=== PATIENT | female | born 1990 | race Asian ===

== ENCOUNTER 2018-12-07 21:58 | Emergency (ER) | payer BC ==
[~2018-12-07] VITALS: Ht 154.9 cm; Wt 80.3 kg
[2018-12-07] MEDS ORDERED: NKM (22:18)
[2018-12-07 22:25] VITALS: BP 143/92
--- NOTE | 2018-12-07 22:35 | NUR ---
ED Nurse Note: Pt arrived ED from home, c/o middle chest pain 04/21 today. Pt is A/O X 4. Vital signs stable at this time, waiting for orders.
--- NOTE | 2018-12-07 22:46 | Emergency Room Report ---
History of Present Illness General Chief Complaint: Chest Pain Source: Patient Present Illness HPI 28-year-old female presented after increased pleuritic chest pain. Patient reports having increased pain for 1 day. She reports of increased nonproductive cough. Patient had a positive test and had been noted to have some continued vaginal bleeding and falling quantitative beta-hCG. Patient denies any recent trauma. She reports having continued intermittent chest discomfort.Patient prior history of possible miscarriage. Patient had prior history of Rh-. She reports having multiple sick contacts at home who have a viral type illnesses. Patient reports having some moderate headache. She reports having intermittent frequent headaches. She had a recent ultrasound which showed no evidence of intrauterine . Allergies: Coded Allergies: Dairy (Verified Allergy, Unknown, 12/07/18) MILK (Verified Allergy, Unknown, 12/07/18) Patient History Past Medical History: see triage record Last Menstrual Period: still on Now: No - unsure : 5 Para: 2 Reviewed Nursing Documentation: PMH: Agreed; PSxH: Agreed Nursing Documentation-PMH Past Medical History: No Stated History Review of Systems All Other Systems: negative except mentioned in HPI Physical Exam Vital Signs Date Time Temp Pulse Resp B/P (MAP) Pulse Ox O2 Delivery O2 Flow Rate FiO2 12/07/18 22:10 98.2 88 16 142/93 99 Room Air Sp02 EP Interpretation: reviewed, normal General Appearance: normal inspection, well appearing, no apparent distress, alert, GCS 15 Head: atraumatic ENT: normal ENT inspection, hearing grossly normal, normal voice Neck: normal inspection, full range of motion, supple, no bony tend Respiratory: normal inspection, lungs clear, normal breath sounds, no respiratory distress, no retraction, no wheezing Cardiovascular #1: regular rate, rhythm, no edema Gastrointestinal: normal inspection, normal bowel sounds, non tender, soft, no guarding, no hernia Genitourinary: no CVA tenderness Musculoskeletal: normal inspection, back normal, normal range of motion Neurologic: normal inspection, alert, oriented x3, responsive, 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 Differential diagnosis include was not limited to ectopic , ruptured ovarian cyst, incomplete , pulmonary embolism, myocardial infarction, pneumonia among others. Because of complexity of patient's case laboratory testing and imaging studies were ordered. CT imaging of the chest showed no evidence of pulmonary embolism. A studies were notable for negative test. Pelvic ultrasound showed no evidence of retained products. Patient was given prescription for medications for pain. Advised to recheck with primary care physician. Patient does not appear to have any evidence of acute bacterial infection and patient appears to be stable for outpatient follow-up. Labs Test 12/07/18 23:40 White Blood Count 10.0 K/UL (4.8-10.8) Red Blood Count 4.46 M/UL (4.20-5.40) Hemoglobin 11.8 G/DL (12.0-16.0) Hematocrit 36.1 % (37.0-47.0) Mean Corpuscular Volume 81 FL (80-99) Mean Corpuscular Hemoglobin 26.5 PG (27.0-31.0) Mean Corpuscular Hemoglobin Concent 32.7 G/DL (32.0-36.0) Red Cell Distribution Width 12.1 % (11.6-14.8) Platelet Count 196 K/UL (150-450) Mean Platelet Volume 9.4 FL (6.5-10.1) Neutrophils (%) (Auto) 60.8 % (45.0-75.0) Lymphocytes (%) (Auto) 26.8 % (20.0-45.0) Monocytes (%) (Auto) 5.8 % (1.0-10.0) Eosinophils (%) (Auto) 5.1 % (0.0-3.0) Basophils (%) (Auto) 1.5 % (0.0-2.0) D-Dimer 0.36 mg/L FEU (0.00-0.49) Sodium Level 140 MMOL/L (136-145) Potassium Level 4.3 MMOL/L (3.5-5.1) Chloride Level 106 MMOL/L (98-107) Carbon Dioxide Level 28 MMOL/L (21-32) Anion Gap 7 mmol/L (5-15) Blood Urea Nitrogen 10 mg/dL (7-18) Creatinine 0.7 MG/DL (0.55-1.30) Estimat Glomerular Filtration Rate > 60 mL/min (>60) Glucose Level 90 MG/DL (74-106) Calcium Level 8.5 MG/DL (8.5-10.1) Total Bilirubin 0.5 MG/DL (0.2-1.0) Aspartate Amino Transf (AST/SGOT) 21 U/L (15-37) Alanine Aminotransferase (ALT/SGPT) 13 U/L (12-78) Alkaline Phosphatase 64 U/L (46-116) Troponin I 0.000 ng/mL (0.000-0.056) Total Protein 6.7 G/DL (6.4-8.2) Albumin 3.2 G/DL (3.4-5.0) Globulin 3.5 g/dL Albumin/Globulin Ratio 0.9 (1.0-2.7) Thyroid Stimulating Hormone (TSH) 1.005 uiU/mL (0.358-3.740) Human Chorionic Gonadotropin, Quant < 1 mIU/mL (1-6) EKG Diagnostic Results Rate: normal Rhythm: NSR ST Segments: no acute changes Last Vital Signs Date Time Temp Pulse Resp B/P (MAP) Pulse Ox O2 Delivery O2 Flow Rate FiO2 12/07/18 22:10 98.2 88 16 142/93 99 Room Air Status: improved Disposition: HOME, SELF-CARE Condition: Stable Scripts Guaifenesin* (ADULT WAL-TUSSIN*) 100 Mg/5 Ml Liquid 5 ML ORAL Q4H, #120 ML Prov: Eze Gómez MD 12/08/18 Ibuprofen* (MOTRIN*) 600 Mg Tablet 600 MG ORAL Q8H PRN for For Pain, #30 TAB 0 Refills Prov: Eze Gómez MD 12/08/18 Eze Gómez MD Dec 07, 2018 22:46
--- NOTE | 2018-12-07 23:15 | NUR ---
ED Nurse Note: Blood and urine collected and sent to Lab.
--- NOTE | 2018-12-07 23:55 | NUR ---
ED Nurse Note: Pt was sent to [facility]
--- NOTE | 2018-12-08 00:20 | NUR ---
ED Nurse Note: Pt returned from [facility]
[2018-12-08 00:30] LABS: BASOPHILS % (AUTO) 1.5 % (0.0-2.0); EOSINOPHILS % (AUTO) 5.1 % (0.0-3.0); HEMATOCRIT 36.1 % (37.0-47.0); HEMOGLOBIN 11.8 G/DL (12.0-16.0); LYMPHOCYTES % (AUTO) 26.8 % (20.0-45.0); MEAN CORPUSCULAR VOLUME 81 FL (80-99); MONOCYTES % (AUTO) 5.8 % (1.0-10.0); NEUTROPHILS % (AUTO) 60.8 % (45.0-75.0); PLATELET COUNT 196 K/UL (150-450); RED BLOOD COUNT 4.46 M/UL (4.20-5.40); RED CELL DISTRIBUTION WIDTH 12.1 % (11.6-14.8)
[2018-12-08 00:34] LABS: ALANINE AMINOTRANSFERASE 13 U/L (12-78); ALBUMIN 3.2 G/DL (3.4-5.0); ALBUMIN/GLOBULIN RATIO 0.9 (1.0-2.7); ALKALINE PHOSPHATASE 64 U/L (46-116); ANION GAP 7 mmol/L (5-15); ASPARTATE AMINO TRANSFERASE 21 U/L (15-37); BILIRUBIN,TOTAL 0.5 MG/DL (0.2-1.0); BLOOD UREA NITROGEN 10 mg/dL (7-18); CALCIUM 8.5 MG/DL (8.5-10.1); CARBON DIOXIDE 28 MMOL/L (21-32); CHLORIDE 106 MMOL/L (98-107); CREATININE 0.7 MG/DL (0.55-1.30); POTASSIUM 4.3 MMOL/L (3.5-5.1); SODIUM 140 MMOL/L (136-145)
[2018-12-08] MEDS ORDERED: Albuterol/Ipratropium 3ml neb HHN ONE (01:45)
[2018-12-08] MEDS ORDERED: Isovue-370 150ml vial INJ PRN (02:00)
--- NOTE | 2018-12-08 02:25 | NUR ---
ED Nurse Note: Dr. Gómez ordered CT, new IV was inserted at left AC, 20G. X-ray done at bed side.
--- NOTE | 2018-12-08 03:03 | NUR ---
ED Nurse Note: Pt was sent down for CT.
[2018-12-08] MEDS ORDERED: IBUPROFEN600 MG ORAL (04:47)
[2018-12-08] MEDS ORDERED: ADULT WAL-100 MG/5 M ORAL (04:47)
[2018-12-08 05:20] VITALS: BP 135/82
--- NOTE | 2018-12-08 05:20 | NUR ---
ER DISCHARGE NOTE: Patient is cleared to be discharged per , pt is aox4, on room air, with stable vital signs. pt was given dc and prescription instructions, pt was able to verbalize understanding, pt id band and iv site removed without complications. pt is able to ambulate with steady gait. pt took all belongings.
--- NOTE | 2018-12-08 10:25 | Diagnostic Imaging Report ---
Indication: Pelvic pain, positive home test 3 weeks ago, negative serum test currently Technique: Transabdominal and transvaginal images of the pelvis. Doppler interrogation of the ovaries Comparison: none Findings: Uterus measures 6.8 cm length, 3.9 cm AP. It is retroverted and retroflexed. Endometrium measures 9 mm thick. No myometrial abnormality. Right ovary measures 2.2 cm length. Left ovary measures 3.3 cm length. Both ovaries demonstrate normal blood flow. No adnexal mass or ovarian mass demonstrated. No free cul-de-sac fluid Impression: Negative No gestational sac demonstrated. This is expected, given current negative patency test This agrees with the preliminary interpretation provided overnight by [facility].
--- NOTE | 2018-12-08 10:42 | Diagnostic Imaging Report ---
Indication: Chest pain Technique: One view of the chest Comparison: none Findings: Lungs and pleural spaces are clear. Heart size is normal Impression: No acute process
--- NOTE | 2018-12-08 10:49 | Diagnostic Imaging Report ---
ndication: Chest pain Technique: IV administration nonionic contrast. Spiral acquisitions obtained from the lung bases to the lung apices. Multiplanar and 3-D reconstructions were generated. Total dose length product 861.46 mGycm. CTDIvol(s) 25.89 mGy. Dose reduction achieved using automated exposure control Comparison: none Findings: There is good quality opacification of the pulmonary arteries. No intraluminal filling defects or other findings to suggest acute pulmonary embolus demonstrated. Normal caliber pulmonary arteries. Normal fuchs-white neck and abdominal visceral vessel anatomy. No evidence of thoracic aortic aneurysm or dissection. No evidence of right ventricular dilatation. The lungs are clear. No infiltrates, effusions, masses, nodules, or congestion demonstrated. No mediastinal or hilar mass or adenopathy. No pericardial effusion. Normal heart size. No axillary or chest wall mass or adenopathy. The included upper abdominal viscera are unremarkable. Impression: No evidence of acute pulmonary embolus or other acute or significant abnormality This agrees with the preliminary interpretation provided overnight by [facility]. The CT scanner at [facility] is accredited by the [employer] and the scans are performed using protocols designed to limit radiation exposure to as low as reasonably achievable to attain images of sufficient resolution adequate for diagnostic evaluation.
--- NOTE | 2018-12-08 17:22 | Cardiology Report ---
APPROVED REPORT EKG Measurement Heart [id number] MD [id number] Normal sinus rhythm Cannot rule out Anterior infarct, age undetermined Abnormal ECG
== END 2018-12-08 05:20 | disposition home or self-care (01) ==
LOC: EMR 22:38
DX: R07.89 Other chest pain (principal); R07.9 Chest pain, unspecified; Z91.011 Allergy to milk products
CPT/HCPCS: 36415; 71045; 71275; 76830; 76856; 80053; 84443; 84484; 84702; 85025; 85379; 86710; 86850; 86870; 86900; 86901; 93005; 99284; Q9967